=== PATIENT | male | born 1970 | race Caucasian/White ===

== ENCOUNTER 2016-06-03 14:23 | Emergency (ER) | payer OTHER ==
[2016-06-03] MEDS ORDERED: NS 0.9% 1000 ML* 2,000 ML IV ONE (15:31)
[2016-06-03] MEDS ORDERED: Ondansetron INJ* 2 MG/ML VIAL IV ONE (15:31)
[2016-06-03 15:54] LABS: Hematocrit 43 % (42-52); Hemoglobin 14.9 g/dl (14.0-18.0); Mean Corpuscular HGB Conc 35 g/dl (31-36); Mean Corpuscular Hemoglobin 31 pg (27-31); Mean Corpuscular Volume 90 fL (80-94); Mean Platelet Volume 9 um3 (7.4-10.4); Red Blood Count 4.76 10^6/ul (4.0-5.4); Red Cell Distribution Width 13 % (10.5-15); White Blood Count 6.8 10^3/ul (3.5-10.8)
[2016-06-03 16:17] LABS: Albumin 3.8 g/dL (3.2-5.2); BUN/Creatinine Ratio 12.8 (8-20); C Reactive Protein 3.03 mg/L (< 5.00); Calcium 8.8 mg/dL (8.6-10.3); EGFR African American 112.6 (>60); EGFR Non-African American 87.6 (>60); Globulin 3.1 g/dL (2-4); Potassium 4.3 mmol/L (3.5-5.0); Total Bilirubin 0.9 mg/dL (0.2-1.0); Total Protein 6.9 g/dL (6.4-8.9)
[2016-06-03 16:41] LABS: Urine Bilirubin Negative (Negative); Urine Glucose Negative (Negative); Urine Nitrite Negative (Negative)
--- NOTE | 2016-06-03 17:23 | ED ---
I, Oh,Jeff, scribed for Doc De La Rosa MD on 06/03/16 at 1527 . Abdominal Pain/Male - HPI Summary HPI Summary: This 45 y/o male presents to ED for acute abd pain across LUQ and RLQ since this morning. Pt reports n/v/d since last night with 2 episodes of n/v and ~10 episodes of diarrhea since last night. Pt still have appendix. Pt denies any cough, sore throat, dysuria. PO intake of food makes the emesis and diarrhea worse, but pt is able to tolerate some fluid. 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 PMHx includes cardiac dysrhythmia s/p defib placement. Pt reports that his defib is currently shut off. - History of Current Complaint Chief Complaint: EDAbdPain Stated Complaint: HEADACHE/ABD PAIN Time Seen by Provider: 06/03/16 15:11 Hx Obtained From: Patient Onset/Duration: Sudden Onset Timing: Constant Severity Initially: Moderate Severity Currently: Moderate Pain Intensity: 5 Pain Scale Used: 0-10 Numeric Location: Discrete At: RLQ, Discrete At: LUQ Radiates: No Aggravating Factor(s): Food Alleviating Factor(s): Nothing Associated Signs And Symptoms: Positive: Nausea, Vomiting, Diarrhea. Negative: Fever, Back Pain, Urinary Symptoms, Decreased Appetite - Allergies/Home Medications Allergies/Adverse Reactions: Allergies Allergy/AdvReac Type Severity Reaction Status Date / Time No Known Allergies Allergy Verified 03/27/16 10:41 PMH/Surg Hx/FS Hx/Imm Hx Endocrine/Hematology History: Denies: Hx Anticoagulant Therapy, Hx Diabetes, Hx Thyroid Disease Cardiovascular History: Reports: Hx Auto Implanted Cardiovert Defib - No longer in use, had it during detox due to cardiac complications., Hx Pacemaker/ICD Denies: Hx Congestive Heart Failure, Hx Deep Vein Thrombosis, Hx Hypertension , Hx Myocardial Infarction Respiratory History: Denies: Hx Asthma, Hx Chronic Obstructive Pulmonary Disease (COPD), Hx Lung Cancer, Hx Pneumonia, Hx Pulmonary Embolism GI History: Denies: Hx Gall Bladder Disease, Hx Gastrointestinal Bleed, Hx Ulcer, Hx Urosepsis History: Reports: Other Problems/Disorders - 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, now fine Denies: Hx Kidney Stones, Hx Renal Disease Neurological History: Denies: Hx Dementia, Hx Migraine, Hx Seizures, Hx Transient Ischemic Attacks (TIA) Psychiatric History: Reports: Hx Substance Abuse Denies: Hx Anxiety, Hx Depression, Hx Schizophrenia, Hx Bipolar Disorder - Surgical History Surgery Procedure, Year, and Place: Pacemaker, Defibrillator placement 2005 Infectious Disease History: Yes Infectious Disease History: Reports: Hx Hepatitis - A, he thinks Denies: Hx Clostridium Difficile, Hx Human Immunodeficiency Virus (HIV), Hx of Known/Suspected MRSA, Hx Shingles, Hx Tuberculosis, Hx Known/Suspected VRE, Hx Known/Suspected VRSA, History Other Infectious Disease, Traveled Outside the [place] in Last 30 Days - Family History Known Family History: Positive: Cardiac Disease, Hypertension, Diabetes - Social History Occupation: Employed Full-time - [employer] Alcohol Use: Hx of EtOH abuse Alcohol Amount: hx of alcohol abuse Hx Substance Use: Yes Substance Use Type: Reports: Other - meth Substance Use Comment - Amount & Last Used: hx of bath salt abuse Hx Tobacco Use: Yes Smoking Status (MU): Never Smoked Tobacco Type: Smokeless Tobacco Amount Used/How Often: one daily Length of Time of Smoking/Using Tobacco: 30 YEARS Have You Smoked in the Last Year: No Review of Systems Negative: Fever Negative: Sore Throat Negative: Shortness Of Breath, Cough Positive: Abdominal Pain, Vomiting, Diarrhea, Nausea Negative: dysuria Negative: Anxious All Other Systems Reviewed And Are Negative: Yes Physical Exam - Summary Physical Exam Summary: The patient is well-nourished in no acute distress and in no acute pain. The skin is warm and dry and skin color reflects adequate perfusion. Good turgor. HEENT: The head is normocephalic and atraumatic. The pupils are equal and reactive. The conjunctivae are clear and without drainage. Nares are patent and without drainage. Mouth reveals DRY mucous membranes and the throat is without erythema and exudate. The external ears are intact. The ear canals are patent and without drainage. The tympanic membranes are intact. Neck is supple with full range of motion and non-tender. There are no carotid bruits. There is no neck vein distension. Respiratory: Chest is non-tender. Lungs are clear to auscultation and breath sounds are symmetrical and equal. Cardiovascular: Hear is regular rate and rhythm. There is no murmur or rub auscultated. There is no peripheral edema and pulses are symmetrical and equal. Abdomen: The abdomen is soft and non-tender. no tenderness over McBurney's point. There are normal bowel sounds heard in all four quadrants and there is no organomegaly palpated. Negative leg raise -- no pain with flexion of knees. Musculoskeletal: There is no back pain noted. Extremities are non-tender with full range of motion. There is good capillary refill. There is no peripheral edema or calf tenderness elicited. Neurological: Patient is alert and oriented to person, place and time. The patient has symmetrical motor strength in all four extremities. Cranial nerves are grossly intact. Deep tendon reflexes are symmetrical and equal in all four extremities. Psychiatric: The patient has an appropriate affect and does not exhibit any anxiety or depression. Triage Information Reviewed: Yes Vital Signs On Initial Exam: Initial Vitals Temp Pulse Resp BP Pulse Ox 98.6 F 77 16 135/86 100 06/03/16 14:36 06/03/16 14:36 06/03/16 14:36 06/03/16 14:36 06/03/16 14:36 Vital Signs Reviewed: Yes Diagnostics - Vital Signs Vital Signs Temp Pulse Resp BP Pulse Ox 06/03/16 14:36 98.6 F 77 16 135/86 100 - Laboratory Lab Results: Lab Results 06/03/16 06/03/16 06/03/16 Range/Units 15:45 15:45 15:45 WBC 6.8 (3.5-10.8) 10^3/ul RBC 4.76 (4.0-5.4) 10^6/ul Hgb 14.9 (14.0-18.0) g/dl Hct 43 (42-52) % MCV 90 (80-94) fL MCH 31 (27-31) pg MCHC 35 (31-36) g/dl RDW 13 (10.5-15) % Plt Count 230 (150-450) 10^3/ul MPV 9 (7.4-10.4) um3 Neut % (Auto) 61.9 (38-83) % Lymph % (Auto) 27.4 (25-47) % [place] % (Auto) 8.6 (1-9) % Eos % (Auto) 1.3 (0-6) % Baso % (Auto) 0.8 (0-2) % Absolute Neuts (auto) 4.2 (1.5-7.7) 10^3/ul Absolute Lymphs (auto) 1.9 (1.0-4.8) 10^3/ul Absolute Monos (auto) 0.6 (0-0.8) 10^3/ul Absolute Eos (auto) 0.1 (0-0.6) 10^3/ul Absolute Basos (auto) 0.1 (0-0.2) 10^3/ul Absolute Nucleated RBC 0.01 10^3/ul Nucleated RBC % 0.1 Sodium 138 (133-145) mmol/L Potassium 4.3 (3.5-5.0) mmol/L Chloride 107 (101-111) mmol/L Carbon Dioxide 27 (22-32) mmol/L Anion Gap 4 (2-11) mmol/L BUN 12 (6-24) mg/dL Creatinine 0.94 (0.67-1.17) mg/dL Est GFR ( Amer) 112.6 (>60) Est GFR (Non-Af Amer) 87.6 (>60) BUN/Creatinine Ratio 12.8 (8-20) Glucose 79 (70-100) mg/dL Lactic Acid 0.8 (0.5-2.0) mmol/L Calcium 8.8 (8.6-10.3) mg/dL Total Bilirubin 0.90 (0.2-1.0) mg/dL AST 27 (13-39) U/L ALT 63 H (7-52) U/L Alkaline Phosphatase 63 (34-104) U/L C-Reactive Protein 3.03 (< 5.00) mg/L Total Protein 6.9 (6.4-8.9) g/dL Albumin 3.8 (3.2-5.2) g/dL Globulin 3.1 (2-4) g/dL Albumin/Globulin Ratio 1.2 (1-3) Lipase 36 (11.0-82.0) U/L Urine Color Urine Appearance Urine pH (5-9) Ur Specific [place] (1.010-1.030) Urine Protein (Negative) Urine Ketones (Negative) Urine Blood (Negative) Urine Nitrate (Negative) Urine Bilirubin (Negative) Urine Urobilinogen (Negative) Ur Leukocyte Esterase (Negative) Urine Glucose (Negative) Urine Ascorbic Acid (Negative) 06/03/16 Range/Units 16:30 WBC (3.5-10.8) 10^3/ul RBC (4.0-5.4) 10^6/ul Hgb (14.0-18.0) g/dl Hct (42-52) % MCV (80-94) fL MCH (27-31) pg MCHC (31-36) g/dl RDW (10.5-15) % Plt Count (150-450) 10^3/ul MPV (7.4-10.4) um3 Neut % (Auto) (38-83) % Lymph % (Auto) (25-47) % Merrick % (Auto) (1-9) % Eos % (Auto) (0-6) % Baso % (Auto) (0-2) % Absolute Neuts (auto) (1.5-7.7) 10^3/ul Absolute Lymphs (auto) (1.0-4.8) 10^3/ul Absolute Monos (auto) (0-0.8) 10^3/ul Absolute Eos (auto) (0-0.6) 10^3/ul Absolute Basos (auto) (0-0.2) 10^3/ul Absolute Nucleated RBC 10^3/ul Nucleated RBC % Sodium (133-145) mmol/L Potassium (3.5-5.0) mmol/L Chloride (101-111) mmol/L Carbon Dioxide (22-32) mmol/L Anion Gap (2-11) mmol/L BUN (6-24) mg/dL Creatinine (0.67-1.17) mg/dL Est GFR ( Amer) (>60) Est GFR (Non-Af Amer) (>60) BUN/Creatinine Ratio (8-20) Glucose (70-100) mg/dL Lactic Acid (0.5-2.0) mmol/L Calcium (8.6-10.3) mg/dL Total Bilirubin (0.2-1.0) mg/dL AST (13-39) U/L ALT (7-52) U/L Alkaline Phosphatase (34-104) U/L C-Reactive Protein (< 5.00) mg/L Total Protein (6.4-8.9) g/dL Albumin (3.2-5.2) g/dL Globulin (2-4) g/dL Albumin/Globulin Ratio (1-3) Lipase (11.0-82.0) U/L Urine Color Yellow Urine Appearance Clear Urine pH 5.0 (5-9) Ur Specific [place] 1.015 (1.010-1.030) Urine Protein Negative (Negative) Urine Ketones Negative (Negative) Urine Blood Negative (Negative) Urine Nitrate Negative (Negative) Urine Bilirubin Negative (Negative) Urine Urobilinogen Negative (Negative) Ur Leukocyte Esterase Negative (Negative) Urine Glucose Negative (Negative) Urine Ascorbic Acid * H (Negative) Result Diagrams: 06/03/16 15:45 06/03/16 15:45 Lab Statement: Any lab studies that have been ordered have been reviewed, and results considered in the medical decision making process. Re-Evaluation - Re-Evaluation First Eval Re-Evaluation Time: 17:11 Change: Improved Comment: ERP in room to update pt on labwork and UA results. Plan of care involving discharge and outpatient f/u with his primary care provider is discussed. Pt wants medicines to control his nausea and work note, but otherwise agreeable to discharge. No reproducible abd pain upon re-exam. Pt does report RICHARD that was mentioned in triage note, but states that it is resolved without light present. Abdominal Pain Fem Course/Dx - Course Assessment/Plan: This 45 y/o male presents to ED for n/v/d since last night and abd pain that started this AM. Pt has not had any BM since pt has arrived in ED. Bloodwork and UA are wnl except slightly elevated ALT and ascorbic acid in urine. Since pt's arrival to ED, pt did not have any n/v or BM. Bloodwork result has been shared with pt, with whom plan of care involving discharge and outpatient f/u is discussed. Pt is agreeable, and currently requests med to control his nausea and work note. - Diagnoses Differential Diagnosis/HQI/PQRI: Appendicitis, Pancreatitis, Other - dehydration , colitis, headache Provider Diagnoses: Abdominal pain Discharge - Discharge Plan Condition: Stable Disposition: HOME Prescriptions: Ondansetron ODT TAB* [Zofran Odt TAB*] 4 mg PO Q8H PRN #20 tab.odt PRN Reason: nausea Patient Education Materials: Ondansetron (By mouth), Abdominal Pain (ED) Forms: *Work Release Referrals: Oumar Shanks MD [Primary Care Provider] - 2 Days The documentation as recorded by the richaibGiovanny gao Soohyun accurately reflects the service I personally performed and the decisions made by me, Doc De La Rosa MD.
[2016-06-03 17:34] VITALS: BP 134/82
== END 2016-06-03 17:33 | disposition home or self-care (01) ==
LOC: ED 14:23
DX: R10.84 Generalized abdominal pain (principal); R11.2 Nausea with vomiting, unspecified; R19.7 Diarrhea, unspecified
CPT/HCPCS: 36415; 80053; 81003; 83605; 83690; 85025; 86140; 96361; 96374; 99282; J2405

== ENCOUNTER 2017-07-15 20:18 | Emergency (ER) | payer SELFPAY | END 2017-07-15 20:36 | disposition left against medical advice (07) | LOC: UCEAST 20:18 | DX: R51 Headache (principal); Z53.21 Procedure and treatment not carried out due to patient leaving prior to being seen by health care provider ==

== ENCOUNTER 2017-08-12 17:43 | Emergency (ER) | payer OTHER ==
[2017-08-12 18:38] VITALS: BP 151/79
--- NOTE | 2017-08-12 19:16 | UC ---
Neck Pain HPI - HPI Summary HPI Summary: This is a 47 yo male who presents with c/o R elbow pain and neck pain. He fell twice on the ice in the last 4 weeks. He denies head inj or LOC. No dizziness or RICHARD. 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 Occasionally the pain radiates down either arm, no associated weakness. He c/o pain over the medial epicondyle and feels that there is a "bump" there. He gets some numbness in his hand when his elbow rests on an object for a long period of time. - History of Current Complaint Chief Complaint: UCUpperExtremity Stated Complaint: NECK/ARM PAIN Pain Intensity: 5 - Allergies/Home Medications Allergies/Adverse Reactions: Allergies Allergy/AdvReac Type Severity Reaction Status Date / Time No Known Allergies Allergy Verified 08/12/17 18:38 Home Medications: Home Medications Aspirin Low Dose CHEW TAB* [Aspirin Low Dose TAB*] 4 tab PO PRN 08/12/17 [ History] PMH/Surg Hx/FS Hx/Imm Hx Previously Healthy: Yes Other History Of: Hepatitis C - He had history of hepatitis C. No treatment given. Bld tests: nl. Negative For: HIV, Hepatitis B, Anticoagulant Therapy - Surgical History Surgical History: Yes Surgery Procedure, Year, and Place: Pacemaker/Defibrillator placement 2005 ( TURNED OFF OF 2017) - Family History Known Family History: Positive: Cardiac Disease, Hypertension, Diabetes Family History: R & n/C - Social History Alcohol Use: Rare Alcohol Amount: hx of alcohol abuse Substance Use Type: None Substance Use Comment - Amount & Last Used: HX DRUG USE Smoking Status (MU): Never Smoked Tobacco Type: Smokeless Tobacco Amount Used/How Often: one daily Length of Time of Smoking/Using Tobacco: 30 YEARS Have You Smoked in the Last Year: No When Did the Patient Quit Smoking/Using Tobacco: 10 YRS - Immunization History Most Recent Influenza Vaccination: unk Most Recent Tetanus Shot: 4 yrs ago Most Recent Pneumonia Vaccination: unk Review Of Systems Constitutional: Positive: Negative Skin: Positive: Negative Eyes: Positive: Negative ENT: Positive: Negative Respiratory: Positive: Negative Cardiovascular: Positive: Negative Gastrointestinal: Positive: Negative Genitourinary: Positive: Negative Musculoskeletal: Positive: Arthralgia Neurological: Positive: Negative Psychological: Positive: Negative All Other Systems Reviewed And Are Negative: Yes Physical Exam Triage Information Reviewed: Yes Appearance: Well-Appearing Vital Signs: Initial Vital Signs Temp 98.3 F 08/12/17 18:32 Pulse 75 08/12/17 18:32 Resp 18 08/12/17 18:32 BP 151/79 08/12/17 18:32 Pulse Ox 97 08/12/17 18:32 Vital Signs Reviewed: Yes ENT Exam: Normal ENT: Positive: Other - poor dentition Dental Exam: Normal Neck: Positive: Supple, Other: - FROM, some TTP over trapezium bilaterally Respiratory Exam: Normal Respiratory: Positive: Chest non-tender, Lungs clear. Negative: Crackles, Stridor, Wheezing Cardiovascular Exam: Normal Cardiovascular: Positive: RRR, No Murmur Abdominal Exam: Normal Abdomen Description: Positive: Nontender Musculoskeletal: Positive: Strength Intact, Other: - TTP over medial epicondyle , ROM intact Neurological Exam: Normal Neurological: Positive: Alert Skin Exam: Normal Diagnostics - Laboratory Diagnostic Studies Completed/Ordered: R elbow XR- neg for fx Neck Pain Course/Dx - Course Course Of Treatment: This is a 47 yo male with c/o neck pain and elbow pain. Neck pain appears to be due cervical strain and recommended use of NSAIDs/ muscle relaxants. Elbow is neg for fx. Likely an epicondylitis. Recommend reducing/modifying activity and use of NSAIDs/ice. - Differential Dx/Diagnosis Differential Dx/HQI/PQRI: Arthritis, Sprain, Strain Provider Diagnoses: 1. Cervical strain. 2. Medial epicondylitis Discharge - Sign-Out/Discharge Documenting (check all that apply): Discharge - Discharge Plan Condition: Stable Disposition: HOME Prescriptions: Cyclobenzaprine TAB* [Flexeril 10 MG TAB*] 10 mg PO TID PRN #30 tab PRN Reason: pain/spasm in neck Naproxen 500 mg PO BID #30 tablet Patient Education Materials: Tennis Elbow (ED), Cervical Strain (DC) Referrals: Oumar Shanks MD [Primary Care Provider] - Additional Instructions: Instructions: 1. Use naproxen (anti-inflammatory) for pain relief. Do NOT take this with ibuprofen 2. Apply ice to your elbow, consider use of a wrist splint and/or elbow pad 3. Apply heat to neck 4. Attempt to limit aggrevating activity - Billing Disposition and Condition Condition: STABLE Disposition: HOME
--- NOTE | 2017-08-12 19:18 | RAD ---
HISTORY: Trauma, tenderness to palpation over the medial epicondyle of the right elbow COMPARISONS: November 05, 2008 VIEWS: 4, Frontal, lateral, and oblique views of the right elbow FINDINGS: BONE DENSITY: Normal. BONES: There is no displaced fracture. JOINTS: There is osteoarthritis of the radial-ulnar, ulnar- trochlear, and radial-capitellar articulation.There is no posterior supracondylar fat pad to suggest a joint effusion. ALIGNMENT: There is no dislocation. SOFT TISSUES: Unremarkable. OTHER FINDINGS: None. IMPRESSION: OSTEOARTHRITIS. NO ACUTE OSSEOUS INJURY. IF SYMPTOMS PERSIST, RECOMMEND REPEAT IMAGING.
== END 2017-08-12 19:54 | disposition home or self-care (01) ==
LOC: UCEAST 17:43
DX: M77.01 Medial epicondylitis, right elbow (principal); S16.1XXA Strain of muscle, fascia and tendon at neck level, initial encounter; W00.0XXA Fall on same level due to ice and snow, initial encounter; Y93.9 Activity, unspecified; Y92.9 Unspecified place or not applicable; Z86.19 Personal history of other infectious and parasitic diseases; Z87.891 Personal history of nicotine dependence
CPT/HCPCS: 99211; G0463

== ENCOUNTER → 2018-01-29 16:40 | Emergency (ER) | payer SELFPAY ==
--- NOTE | 2018-01-29 18:33 | ED ---
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 The patient rates the pain 0/10 in severity. Patient reports nausea, trouble focusing, feeling like he is in a dream, ears feel plugged, blurred vision, and RICHARD. Patient denies CP, trouble breathing, and urinary sx. 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 - History Of Current Complaint Chief Complaint: EDHeadache Stated Complaint: DIZZY/NAUSEA Time Seen by Provider: 01/29/18 18:16 Hx Obtained From: Patient Onset/Duration: Still Present Timing: Days - 3 Severity Initially: Mild Severity Currently: Mild Character: Lightheaded, Dizzy Associated Signs And Symptoms: Positive: Visual Changes, Other: - nausea, trouble focusing, feeling like he is in a dream, ears feel plugged, blurred vision, and RICHARD - Allergies/Home Medications Allergies/Adverse Reactions: Allergies Allergy/AdvReac Type Severity Reaction Status Date / Time No Known Allergies Allergy Verified 01/29/18 17:09 PMH/Surg Hx/FS Hx/Imm Hx Endocrine/Hematology History: Denies: Hx Anticoagulant Therapy, Hx Diabetes, Hx Thyroid Disease Cardiovascular History: Reports: Hx Auto Implanted Cardiovert Defib - No longer in use, had it during detox due to cardiac complications., Hx Pacemaker/ICD Denies: Hx Congestive Heart Failure, Hx Deep Vein Thrombosis, Hx Hypertension , Hx Myocardial Infarction Respiratory History: Denies: Hx Asthma, Hx Chronic Obstructive Pulmonary Disease (COPD), Hx Lung Cancer, Hx Pneumonia, Hx Pulmonary Embolism GI History: Denies: Hx Gall Bladder Disease, Hx Gastrointestinal Bleed, Hx Ulcer, Hx Urosepsis History: Reports: Other Problems/Disorders - 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, now fine Denies: Hx Kidney Stones, Hx Renal Disease Musculoskeletal History: Reports: Hx Back Problems Denies: Hx Scoliosis Neurological History: Denies: Hx Dementia, Hx Headaches, Hx Migraine, Hx Seizures, Hx Transient Ischemic Attacks (TIA) Psychiatric History: Reports: Hx Substance Abuse Denies: Hx Anxiety, Hx Depression, Hx Schizophrenia, Hx Bipolar Disorder - Surgical History Surgery Procedure, Year, and Place: Pacemaker/Defibrillator placement 2005 ( TURNED OFF OF 2018) Infectious Disease History: No Infectious Disease History: Reports: Hx Hepatitis - ALCOHOL RELATED Denies: Hx Clostridium Difficile, Hx Human Immunodeficiency Virus (HIV), Hx of Known/Suspected MRSA, Hx Shingles, Hx Tuberculosis, Hx Known/Suspected VRE, Hx Known/Suspected VRSA, History Other Infectious Disease, Traveled Outside the [place] in Last 30 Days - Family History Known Family History: Positive: Cardiac Disease, Hypertension, Diabetes Family History: R & n/C - Social History Alcohol Use: Occasionally Alcohol Amount: hx of alcohol abuse Hx Substance Use: Yes Substance Use Type: Reports: None Substance Use Comment - Amount & Last Used: HX DRUG USE Hx Tobacco Use: Yes Smoking Status (MU): Never Smoked Tobacco Type: Smokeless Tobacco Amount Used/How Often: one daily Length of Time of Smoking/Using Tobacco: 30 YEARS Have You Smoked in the Last Year: No Review of Systems Positive: Blurred Vision Positive: Other - ears feel plugged Negative: Chest Pain Respiratory: Negative - trouble breathing Positive: Nausea Positive: no symptoms reported Neurological: Other - dizziness, trouble focusin, feeling like he is dreaming Positive: Headache All Other Systems Reviewed And Are Negative: Yes Physical Exam - Summary Physical Exam Summary: Appearance: Well-appearing, Well-nourished, lying in bed comfortably Skin: Warm, dry, no obvious rash Eyes: sclera anicteric, no conjunctival pallor ENT: mucous membranes moist, pharynx appears normal Neck: Supple, nontender Respiratory: Clear to auscultation, no signs of respiratory distress Cardiovascular: Normal S1, S2. No murmurs. Normal distal pulses in tibial and radial bilaterally. Abdomen: Soft, nontender, normal active bowel sounds present Musculoskeletal: Normal, Strength/ROM Intact Neurological: A&Ox3, awake and alert, mentation is normal, speech is fluent and appropriate Psychiatric: affect is normal, does not appear anxious or depressed Triage Information Reviewed: Yes Vital Signs On Initial Exam: Initial Vitals Temp Pulse Resp BP Pulse Ox 98.1 F 60 16 131/86 99 01/29/18 17:03 01/29/18 17:03 01/29/18 17:03 01/29/18 17:03 01/29/18 17:03 Vital Signs Reviewed: Yes Diagnostics - Vital Signs Vital Signs Temp Pulse Resp BP Pulse Ox 01/29/18 17:03 98.1 F 60 16 131/86 99 - Laboratory Result Diagrams: 01/29/18 18:59 01/29/18 18:59 Lab Statement: Any lab studies that have been ordered have been reviewed, and results considered in the medical decision making process. 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 The patient rates the pain 0/10 in severity. Patient reports nausea, trouble focusing, feeling like he is in a dream, ears feel plugged, blurred vision, and RICHARD. Patient denies CP, trouble breathing, and urinary sx. 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 Blood work obtained. Patient will be discharged and follow up from PCP. The patient is agreeable with this plan. - Diagnoses Provider Diagnoses: Weakness, Blurred vision, bilateral Discharge - Sign-Out/Discharge Documenting (check all that apply): Patient Departure - Discharge Plan Condition: Good Disposition: HOME Patient Education Materials: Blurred Vision (ED) Referrals: Oumar Shakns MD [Primary Care Provider] - - Billing Disposition and Condition Condition: GOOD Disposition: Home - Attestation Statements Document Initiated by Scribe: Yes Documenting Scribe: Zoltan Caceres Provider For Whom Sandra is Documenting (Include Credential): Carlos Enrique Pathak MD Scribe Attestation: Zoltan Morrison scribed for Carlos Enrique Pathak MD on 01/30/18 at 0849. Scribe Documentation Reviewed: Yes Provider Attestation: The documentation as recorded by the Zoltan zimmerman accurately reflects the service I personally performed and the decisions made by Carlos Enrique barrett MD
[2018-01-29 19:06] LABS: ABS Basophils 0 10^3/ul (0-0.2); ABS Eosinophils 0.3 10^3/ul (0-0.6); ABS Lymphocytes 2.4 10^3/ul (1.0-4.8); ABS Monocytes 0.7 10^3/ul (0-0.8); ABS Neutrophils 3.3 10^3/ul (1.5-7.7); ABS Nucleated RBC 0 10^3/ul; Eosinophil % 3.8 % (0-6); Hematocrit 41 % (42-52); Hemoglobin 14.2 g/dl (14.0-18.0); Lymphocyte % 35.5 % (25-47); Mean Corpuscular HGB Conc 35 g/dl (31-36); Mean Corpuscular Hemoglobin 32 pg (27-31); Mean Corpuscular Volume 90 fL (80-94); Mean Platelet Volume 8.2 um3 (7.4-10.4); Nucleated Red Blood Cells % 0.1; Platelet Count 210 10^3/ul (150-450); Red Blood Count 4.49 10^6/ul (4.00-5.40); Red Cell Distribution Width 13 % (10.5-15); White Blood Count 6.8 10^3/ul (3.5-10.8)
[2018-01-29 19:27] LABS: EGFR Non-African American 100.2 (>60)
[2018-01-29 19:38] VITALS: BP 119/58
== END | disposition home or self-care (01) ==
LOC: ED 16:40
DX: R53.1 Weakness (principal); H53.8 Other visual disturbances
CPT/HCPCS: 36415; 80048; 85025; 99282

== ENCOUNTER 2019-07-25 13:42 | Emergency (ER) | payer OTHER ==
[2019-07-25 14:15] VITALS: BP 127/82
[2019-07-25 15:01] LABS: Influenza B Molecular POSITIVE (Negative)
--- NOTE | 2019-07-25 15:25 | UC ---
FLU HPI - HPI Summary HPI Summary: 49-year-old male comes in with influenza-like symptoms for about 3 days. Fevers chills and body aches headaches cough chest congestion sputum production. He also has been having numbness in his thumb and second and third fingers bilaterally for the last week. 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 Complaint of any numbness in the fourth and fifth fingers bilaterally. No specific trauma denies any wrist pain. - History of Current Complaint Chief Complaint: UCGeneralIllness Stated Complaint: CHEST CONGESTION FEVER CHILLS NAUSEA Time Seen by Provider: 07/25/19 15:00 Pain Intensity: 6 - Allergy/Home Medications Allergies/Adverse Reactions: Allergies Allergy/AdvReac Type Severity Reaction Status Date / Time No Known Allergies Allergy Verified 07/25/19 14:15 Home Medications: Home Medications Dm/PE/Acetaminophen/Doxylamine [Vicks Dayquil-Nyquil Cold-Flu] 1 each PO Q6H 06/14 [History Confirmed 07/25/19] Oseltamivir CAP* [Tamiflu CAP*] 75 mg PO BID #10 cap 07/25/19 [Rx] PMH/Surg Hx/FS Hx/Imm Hx Previously Healthy: Yes Other History Of: Hepatitis C - He had history of hepatitis C. No treatment given. Bld tests: nl. Negative For: HIV, Hepatitis B, Anticoagulant Therapy - Surgical History Surgical History: Yes Surgery Procedure, Year, and Place: Pacemaker/Defibrillator placement 2005 ( TURNED OFF OF 2017) - Family History Known Family History: Positive: Cardiac Disease, Hypertension, Diabetes Family History: R & n/C - Social History Alcohol Use: Weekly Alcohol Amount: hx of alcohol abuse Substance Use Type: None Substance Use Comment - Amount & Last Used: HX DRUG USE Smoking Status (MU): Never Smoked Tobacco Type: Smokeless Tobacco Amount Used/How Often: one daily Length of Time of Smoking/Using Tobacco: 30 YEARS Have You Smoked in the Last Year: No When Did the Patient Quit Smoking/Using Tobacco: 10 YRS - Immunization History Most Recent Influenza Vaccination: unk Most Recent Tetanus Shot: 4 yrs ago Most Recent Pneumonia Vaccination: unk Review of Systems All Other Systems Reviewed And Are Negative: Yes Constitutional: Positive: Fever, Chills, Other - see hpi Skin: Positive: Negative Eyes: Positive: Negative ENT: Positive: Sore Throat, Nasal Discharge, Sinus Congestion Respiratory: Positive: Cough, Other - see hpi Cardiovascular: Positive: Negative Gastrointestinal: Positive: Negative Motor: Positive: Negative Neurovascular: Positive: Negative Musculoskeletal: Positive: Myalgia Neurological/Mental Status: Positive: Headache Psychological: Positive: Negative Is Patient Immunocompromised?: No Physical Exam Triage Information Reviewed: Yes Appearance: No Pain Distress, Well-Nourished, Ill-Appearing - mild Vital Signs: Initial Vital Signs Temp 97.7 F 07/25/19 14:09 Pulse 74 07/25/19 14:09 Resp 16 07/25/19 14:09 BP 127/82 07/25/19 14:09 Pulse Ox 97 07/25/19 14:09 Vital Signs Reviewed: Yes Eye Exam: Normal Eyes: Positive: Conjunctiva Clear ENT: Positive: Pharyngeal erythema, Nasal congestion, Nasal drainage, TMs normal Neck: Positive: Supple Respiratory: Positive: Lungs clear, Normal breath sounds, No respiratory distress Cardiovascular: Positive: RRR Musculoskeletal: Positive: Strength Intact, ROM Intact Neurological: Positive: Alert, Muscle Tone Normal Psychological: Positive: Age Appropriate Behavior Skin Exam: Normal Flu Course/Dx - Course Course Of Treatment: Discussed the results of the influenza swab with the patient. We will treat with Tamiflu and continue symptomatic treatment. For the numbness of the first second third fingers of both hands I suspect carpal tunnel and cockup splints bilaterally replacement nursing patient neurovascular intact after placement of cockup splints. Patient will take ibuprofen and follow-up with orthopedics hands. Patient's to get reevaluated sooner if worse or any questions or concerns. - Differential Dx/Diagnosis Provider Diagnosis: Influenza, Paresthesia of both hands Discharge ED - Sign-Out/Discharge Documenting (check all that apply): Patient Departure All imaging exams completed and their final reports reviewed: No Studies - Discharge Plan Condition: Stable Disposition: HOME Prescriptions: Oseltamivir CAP* [Tamiflu CAP*] 75 mg PO BID #10 cap Patient Education Materials: Influenza (ED), Radial Nerve Palsy (ED) Referrals: Oumar Shanks MD [Primary Care Provider] - Ricardo Dalton MD [Medical Doctor] - Additional Instructions: FOLLOW UP WITH YOUR PRIMARY CARE DOCTOR IF YOUR INFLUENZA SYMPTOMS ARE NOT COMPLETELY IMPROVED. FOLLOW UP WITH THE ORTHOPEDIC HAND SPECIALIST FOR THE NUMBNESS IN YOUR HANDS. GET REEVALUATED SOONER IF NOT IMPROVED OR WORSE OR ANY QUESTIONS OR CONCERNS. - Billing Disposition and Condition Condition: STABLE Disposition: Home
== END 2019-07-25 15:50 | disposition home or self-care (01) ==
LOC: UCEAST 13:42
DX: J11.1 Influenza due to unidentified influenza virus with other respiratory manifestations (principal); R20.2 Paresthesia of skin
CPT/HCPCS: 99212; G0463